=== PATIENT | female | born 1940 | race Caucasian/White ===

== ENCOUNTER 2019-12-17 07:20 | Day surgery (SDC) | payer OTHER ==
[~2019-12-17 07:20] MED LIST: AMOXICILLIN125 MG PO; LASIX20 MG PO; RELAGESIC TABLE1 TAB PO; SULAR10 MG PO
== END 2019-12-17 11:00 | disposition home or self-care (01) ==
LOC: AMB-ENDOS 07:20
PROVIDERS: ATTEND Surgery
DX: D12.8 Benign neoplasm of rectum (principal); K64.8 Other hemorrhoids

== ENCOUNTER 2022-09-27 12:42 | Emergency (ER) | payer OTHER ==
[~2022-09-27] VITALS: Ht 160 cm; Wt 81.6 kg
[2022-09-27] MEDS ORDERED: AMLODIPINE-BEN1 EAC4 PO (12:58)
[2022-09-27] MEDS ORDERED: OPTIMAL D31250 MCG PO (12:58)
[2022-09-27] MEDS ORDERED: PRESERVISION A1 EAC1 PO (12:59)
== END 2022-09-27 15:23 | disposition home or self-care (01) ==
LOC: ER 12:42
DX: I10 Essential (primary) hypertension (principal); M62.838 Other muscle spasm